=== PATIENT | male | born 2000 | race Caucasian/White ===

== ENCOUNTER 2020-08-31 07:52 | Day surgery (SDC) | payer BC ==
[2020-08-31] MEDS ORDERED: CLINDAMYCIN 900MG/D5W 900 MG/50 ML IVPB IV ONE (08:23)
[2020-08-31] MEDS ORDERED: Ringers Lactate 1,000 ML IV ONE (08:23)
[2020-08-31] MEDS: OXYMETAZOLINE HCL 0.05% 15ML NAS ONE ×4 (08:25→10:08)
[2020-08-31] MEDS ORDERED: LIDOCAINE 1% W/EPI 1:100,000 MDV 20 ML VIAL ONE (08:58)
[2020-08-31] MEDS ORDERED: dexAMETHasone 10 MG/ML VIAL ONE (09:04)
[2020-08-31] MEDS ORDERED: FENTANYL CITR 250 MCG/5 ML ONE (09:04)
[2020-08-31] MEDS ORDERED: MIDAZOLAM HCL 2 MG/2 ML INJ ONE (09:04)
[2020-08-31] MEDS ORDERED: LIDOCAINE 1% MPF 5 ML VIAL ONE (09:04)
[2020-08-31] MEDS ORDERED: propofoL 200 MG/20 ML VIAL IV ONE (09:04)
[2020-08-31] MEDS ORDERED: ACETAMINOPHEN 500 MG TAB ONE (09:08)
[2020-08-31] MEDS ORDERED: ROCURONIUM 50 MG/5 ML VIAL IV ONE (09:09)
[2020-08-31] MEDS ORDERED: ONDANSETRON 4 MG/2 ML VIAL ONE (09:09)
--- NOTE | 2020-08-31 10:34 | P.BOP ---
Preoperative diagnosis: FOM mass Postoperative diagnosis: same Primary procedure: excision FOM mass Packing Checker: NONE,NONE Estimated blood loss: 5ml Specimen: FOM mass Findings: 4-5cm cystic well circumscribed mass Anesthesia: General Complications: None Implants: none Fluids & blood products: crystalloid 900ml Transferred to: Recovery Room Condition: Good
[2020-08-31] MEDS ORDERED: GLYCOPYRROLATE 0.2 MG/ML SYR ONE (10:55)
[2020-08-31] MEDS ORDERED: NEOSTIGMINE 1 MG/ML -5 ML ONE (10:57)
[2020-08-31 11:33] VITALS: BP 114/50; TEMP 97.5; O2SAT 98
--- NOTE | 2020-08-31 11:47 | OP ---
Date of Procedure: 08/31/2020 Surgeon: Irma Nuno MD Preoperative Diagnosis: Floor of mouth mass. Postoperative Diagnosis: Floor of mouth mass. Procedure Performed: Excision of floor of mouth mass. Indication For Procedure: Cipriano Abbott presented with a 4-5 cm soft, asymptomatic mass in the floor of mouth that had been present for at least 4 years and was slowly increasing in size. After reviewing imaging including an MRI, our recommendation was made for surgical excision to avoid future complication and for pathologic diagnosis. Description Of Procedure: The patient was brought to the operating room. He was placed under general anesthesia via nasal endotracheal tube and draped in a sterile fashion. The patient received perioperative clindamycin to reduce risk of infection. A large bite block was placed between the right posterior teeth and a cheek retractor was placed on the left and secured to the drape in order to retract the soft tissues. The floor of mouth mass was submucosal in appearance and encompassed the entire floor of mouth. It was soft and was not friable. A 1% lidocaine with epinephrine was injected in the central portion of the floor mouth along the planned incision site. A total of 3 mL were used. After time for effect, a 15 blade was used to incise through the mucosa in a vertical fashion within the midline. Additional incision between the muscle layers was made. A Bovie electrocautery was used to obtain hemostasis along the incision site and Cuellar dissector was used to gently dissect in the midline until the capsule of the cyst was encountered. The dissection was carried out along the wall of the cyst in a blunt fashion using peanut dissectors and a Cuellar dissector. Occasional use of Bovie electrocautery was used to cauterize small blood vessels and areas of thicker fascia. Dissection was carried out from the midline along the right aspect of the mass. During dissection, Sens and an [place] retractor was used to provide exposure by retraction of the mucosal and muscular layers. After repositioning, a similar dissection was carried out from the midline along the left aspect of the mass. The mass was then retracted inferiorly to allow for dissection of fascial attachments along the superior most aspect. Bilateral [place] retractors were used to retract the mucosal and muscular flaps inferiorly and the mass was elevated superiorly using a peanut dissector. Soft tissue attachments along the cyst capsule were judiciously released using Bovie electrocautery taking great care in this area due to the proximity to Peñuelas duct openings. Once the soft tissue attachments were released inferiorly, the peanut dissector was passed around the lateral aspect of the mass around the deep aspect and used to elevate the mass from the surgical cavity. After complete release and removal of the cyst, the surgical bed was thoroughly evaluated. A Ray-Rohith gauze was packed into the cervical cavity to apply some pressure to mild areas of oozing. After several minutes, this was removed. The area was irrigated with copious sterile saline and reinspected. No additional bleeding was noted. The muscles were then approximated in 2 layers including the deep and more superficial layers in order to close space and prevent fluid accumulation within the surgical cavity. The mucosa was then closed in an interrupted fashion using 4-0 chromic sutures taking care to avoid damage to the Peñuelas duct in the anterior most aspect of the incision. After closure, the area was carefully inspected. There was no evidence of significant swelling, bruising, ecchymosis, or early hematoma formation of the floor mouth. The oropharynx was visualized and suctioned from secretions. There was no evidence of significant blood, bleeding, or injury. The cheek retractor and bite block were removed and the patient was returned to care of Anesthesia for awakening and extubation in the operating room, which proceeded without difficulty. Complications: None. Specimens: Anterior floor of mouth mass. Disposition: The patient will be discharged home later today in the care of his family and follow up with Dr. Nuno on Thursday for initial postoperative evaluation. CHASE Voice ID: [id number] Report ID: [id number] PREMA
[2020-08-31] MEDS ORDERED: TRAMADOL HCL 50 MG TAB ONE (12:00)
== END 2020-08-31 12:30 | disposition home or self-care (01) ==
LOC: OR 07:52
PROVIDERS: ATTEND Otolaryngology
PROC: 0WB30ZZ Excision of Oral Cavity and Throat, Open Approach (ICD-10-PCS; principal; 2020-08-31 09:30)
DX: K09.8 Other cysts of oral region, not elsewhere classified (principal)
CPT/HCPCS: 88304; 41116; J2704; J2250; J3010; J1100; J2710; J7120; J2405; 88305